=== PATIENT | male | born 1970 | race African-American/Black ===

== ENCOUNTER 2019-04-10 17:45 | Emergency (ER) | payer OTHER ==
[~2019-04-10] VITALS: Ht 175.3 cm; Wt 70.3 kg
[~2019-04-10 17:45] MED LIST: Tetanus/Diptheria/Pertussis IM ONE
--- NOTE | 2019-04-10 17:45 | NUR ---
ED Nurse Note: PT WENT TO CT VIA GURNEY ACCOMPANIED BY [employer] AND [employer].
--- NOTE | 2019-04-10 17:45 | NUR ---
ED Nurse Note: PT CALI RA26 D/T HEAD PAIN S/P TRAUMATIC INJURY TO HIS HEAD ON BACK WINDOW OF POLICE CAR POST [employer]. [employer] AT BEDSIDE, ERMD AT BEDSIDE. PT VSS, UNCONSCIOUS. WILL CONTINUE TO MONITOR PATIENT.
--- NOTE | 2019-04-10 18:04 | Emergency Room Report ---
History of Present Illness General Chief Complaint: Medical Clearance Source: Patient Present Illness HPI 48-year-old male was being arrested, patient was combative and violent, patient started hitting his head against the back of the patrol cage, when he was being arrested, patient required 10 mg of Versed to sedate him, history is limited due to patient currently sedated symptoms started just prior to arrival severity is moderate, constant no known alleviating factors aggravating factors is Versed, characterization is sedated patient presents for evaluation Allergies: Coded Allergies: UNABLE TO ASSESS (Unverified , 04/10/19) Patient History Limited by: medical condition - Currently sedated Past Medical History: see triage record Reviewed Nursing Documentation: PMH: Agreed; PSxH: Agreed Nursing Documentation-PMH Past Medical History: No Stated History Review of Systems All Other Systems: limited - Currently sedated Physical Exam Vital Signs Date Time Temp Pulse Resp B/P (MAP) Pulse Ox O2 Delivery O2 Flow Rate FiO2 04/10/19 17:40 110 18 128/74 (92) 98 Room Air Sp02 EP Interpretation: reviewed, normal General Appearance: well appearing, no apparent distress, alert Head: normocephalic, other - Contusion to the front head Eyes: bilateral eye PERRL, bilateral eye EOMI ENT: uvula midline, moist mucus membranes Neck: supple, thyroid normal, no bony tend, supple/symm/no masses Respiratory: lungs clear, no respiratory distress, no retraction, no accessory muscle use Cardiovascular #1: normal peripheral pulses, regular rate, rhythm, no edema, no gallop, no murmur Gastrointestinal: non tender, soft, no guarding, no rebound Musculoskeletal: normal inspection Neurologic: alert, oriented x3 Psychiatric: mood/affect normal Skin: no rash, warm/dry Medical Decision Making Diagnostic Impression: Primary Impression: Medical clearance for incarceration Additional Impression: Closed head injury Qualified Codes: S09.90XA - Unspecified injury of head, initial encounter ER Course 48-year-old male presents with aggression, patient was banging his head against the police cage CT scan negative, patient given a Tdap Reevaluation secondary 7:31 PM, patient is back to baseline states he will not hit his head against the police car cage Disposition back to law enforcement, patient is medically cleared at this time no emergent conditions CT/MRI/US Diagnostic Results CT/MRI/US Diagnostic Results : Impression Preliminary Findings Only See Final Report For Complete Findings CT HEAD: No ICH, mass effect or edema. No skull fracture. Radiologist: Arcenio Galvez MD Study ready at 19:08 and initial results transmitted at 19:12 Preliminary Findings Only See Final Report For Complete Findings CT FACIAL: No facial fracture. The paranasal sinuses and mastoid air cells are clear. No traumatic injury to the orbits. Radiologist: Arcenio Galvez MD Study ready at 19:08 and initial results transmitted at 19:13 Preliminary Findings Only See Final Report For Complete Findings CT C SPINE: No fracture or malalignment. Radiologist: Arcenio Galvez MD Study ready at 19:08 and initial results transmitted at 19:16 Last Vital Signs Date Time Temp Pulse Resp B/P (MAP) Pulse Ox O2 Delivery O2 Flow Rate FiO2 04/10/19 17:40 110 18 128/74 (92) 98 Room Air Disposition: D/C TO LAW ENFORCEMENT IN CUST Condition: Stable Referrals: [facility]. [facility] Patient Instructions: Head Injury, Adult Additional Instructions: The patient was provided with discharge instructions, notified to follow-up with a primary care doctor and or specialist in the next 24-48 hours, and to return to the ED if they have worsening of their symptoms. Please note that this report is being documented using [employer] technology. This can lead to erroneous entry secondary to incorrect interpretation by the dictating instrument. Sedrick Power MD Apr 10, 2019 18:04
--- NOTE | 2019-04-10 18:15 | NUR ---
ED Nurse Note: PT BACK FROM CT VIA [facility]EN[facility]ONNY ACCOMPANIED BY [employer] AND [employer]. PT IS UNCONSCIOUS, VSS, NAD. WILL CONTINUE TO MONITOR PATIENT.
[2019-04-10] MEDS ORDERED: Tetanus/Diptheria/Pertussis IM ONE (18:21)
[2019-04-10 18:52] VITALS: BP 117/74
--- NOTE | 2019-04-10 19:05 | NUR ---
HAND-OFF: Report given to SAM DELGADO.
--- NOTE | 2019-04-10 19:06 | NUR ---
ED Nurse Note: Received report from Grant Aquino RN.
[2019-04-10] MEDS ORDERED: DiphenhydrAMINE 50mg/ml Inj IM ONE (19:30)
[2019-04-10] MEDS ORDERED: DiphenhydrAMINE 50mg/ml Inj ONE (19:32)
[2019-04-10 21:20] VITALS: BP 125/82
--- NOTE | 2019-04-10 21:20 | NUR ---
ER DISCHARGE NOTE: Patient cleared for discharge per ERMD. Patient DC instructions given to [employer], verbalized understanding. [employer] took all patient belongings. All medical devices removed. Patient stable upon discharge accompanied by [employer] via wheelchair.
--- NOTE | 2019-04-11 10:39 | Diagnostic Imaging Report ---
Indication: Orbital and maxillofacial trauma and pain Technique: Continuous helical transaxial imaging of the orbits/maxillofacial structures obtained without intravenous contrast administration. Coronal 2-D reformats were also obtained. Study obtained in a Siemens sensation [address] Automatic Exposure Control was utilized. Total Dose length Product (DLP): 528.[address] Dose Index Volume (CTDIvol): 24 mGy Comparison: None Findings: No acute fracture is identified. There is soft tissue swelling in the anterior part of the mandible. A few submental nodes are present. Paranasal sinuses and mastoids are clear. Orbits are unremarkable. IMPRESSION: No acute fracture identified. Soft tissue swelling in the perimandibular region is only trauma related. The CT scanner at [facility] is accredited by the [employer] and the scans are performed using dose optimization techniques as appropriate to a performed exam including Automatic Exposure control.
--- NOTE | 2019-04-11 10:58 | Diagnostic Imaging Report ---
Indication: Cervical trauma/pain. Technique: Continuous helical imaging of the cervical spine was obtained transaxially from the skull base to the upper thoracic spine. 2-D coronal and sagittal reformatted images were obtained. Automatic Exposure Control was utilized. Total Dose length Product (DLP): 275.[address] Dose Index Volume (CTDIvol): 9.6 mGy Comparison: None Findings: The study is suboptimal due to difficulty in positioning the patient appropriately for the study. True lateral and true orthogonal coronal reconstructions could not be obtained because of the patient's head position. As evaluated, there is no acute fracture identified. There are vertebral endplate osteophytes that project anteriorly throughout the cervical spine from C2-3 to C6-7. The changes are mild except for at C5-6 and C6-7 where there are moderate. Although the patient's head is turned, there does not appear to be any significant malalignment of the cervical spine. There is no obvious soft tissue swelling/edema identified. IMPRESSION: No acute injury with limitations as described above. Degenerative spondylosis. [facility] has communicated the preliminary results to the Emergency Department. Their findings are largely concordant with this report. The CT scanner at [facility] is accredited by the [employer] and the scans are performed using dose optimization techniques as appropriate to a performed exam including Automatic Exposure control.
--- NOTE | 2019-04-11 11:14 | Diagnostic Imaging Report ---
Indication: Headache. Head trauma Technique: Contiguous 5 mm thick transaxial imaging of the head obtained in a Siemens Sensation [address] scanner. Soft tissue and bone windows generated. Automatic Exposure Control was utilized. Total Dose length Product (DLP): [address] Dose Index Volume (CTDIvol): 62.7 mGy Comparison: none Findings: The size and configuration of the cortical sulci, basal cisterns, and ventricles are within normal limits for age. There is no mass effect, midline shift, or edema identified. There is some prominence of the basal cisterns and cerebellar fissures consistent with mild cerebellar atrophy. There is no evidence of acute hemorrhage or abnormal intra-axial or extra-axial fluid collections. The bones and soft tissues are unremarkable. Impression: No mass effect, edema or acute bleed. Mild cerebellar atrophy. [facility] has communicated the preliminary results to the Emergency Department. Their findings are largely concordant with this report. The CT scanner at [facility] is accredited by the [employer] and the scans are performed using dose optimization techniques as appropriate to a performed exam including Automatic Exposure control.
== END 2019-04-10 21:20 ==
LOC: EDBD 17:45 → EMR 19:02
DX: Z02.89 Encounter for other administrative examinations (principal); S09.90XA Unspecified injury of head, initial encounter; W22.8XXA Striking against or struck by other objects, initial encounter; Y93.89 Activity, other specified; Y92.810 Car as the place of occurrence of the external cause
CPT/HCPCS: 70450; 70486; 72125; 90471; 90715; 96372; 99284; J1200; J2250